=== PATIENT | female | born 2000 | race Caucasian/White ===

== ENCOUNTER 2024-06-23 19:51 | Emergency (ER) | payer OTHER, BC, SELFPAY ==
[2024-06-23 19:52] VITALS: BP 135/76; PULSE 98; RESP 16; TEMP 36.8; O2SAT 100; BMI 29.0
--- NOTE | 2024-06-23 21:25 | RAD_ITS ---
PROCEDURE: FINGER(S) MIN 2 VIEWS REASON FOR EXAM: Pain. TECHNIQUE: 3 view(s) of the left 5th digit COMPARISON: None FINDINGS: Tiny fracture of the base of the 5th proximal phalanx. Normal alignment. Soft tissues are unremarkable. RAD/Finger(s) Min 2 Views IMPRESSION: 5th proximal phalanx fracture. Reading Location: [place] [id number]
--- NOTE | 2024-06-23 21:25 | RAD_ITS ---
PROCEDURE: FINGER(S) MIN 2 VIEWS REASON FOR EXAM: Pain and swelling. TECHNIQUE: 3 view(s) of the right 1st digit. COMPARISON: None FINDINGS: No visible fracture. Normal alignment. Soft tissues are unremarkable. RAD/Finger(s) Min 2 Views IMPRESSION: NEGATIVE FINGER SERIES Reading Location: [place] [id number]
--- NOTE | 2024-06-23 21:25 | CT_ITS ---
PROCEDURE: SPINE CERVICAL WITHOUT CONTRAS REASON FOR EXAM: Pain. TECHNIQUE: Cervical spine CT without contrast. COMPARISON: None. FINDINGS: Alignment: Normal Vertebrae: No acute fracture Soft Tissues: Unremarkable C1-2: Normal alignment. Dens appears intact. C2-3: Unremarkable C3-4: Unremarkable C4-5: Unremarkable C5-6: Unremarkable C6-7: Unremarkable C7-T1: Unremarkable CT/Spine Cervical without Contras IMPRESSION: No acute osseous abnormalities. One or more dose reduction techniques were used (e.g., Automated exposure contr ol, adjustment of the mA and/or kV according to patient size, use of iterative reconstruction technique). Reading Location: [place] [id number]
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
[2024-06-23 21:52] VITALS: BP 132/81; PULSE 74; RESP 16; O2SAT 98
[2024-06-23] MEDS: oxyCODONE 5 MG Tablet PO (23:05)
[2024-06-23 23:12] VITALS: BP 117/74; PULSE 89; RESP 16; TEMP 36.6; O2SAT 99
== END 2024-06-23 23:14 | disposition home or self-care (01) ==
PROVIDERS: Emergency Provider Emergency Medicine; PCP Nurse Practitioner Family; Visit Provider Emergency Medicine
DX: S16.1XXA Strain of muscle, fascia and tendon at neck level, initial encounter (principal); S62.617A Displaced fracture of proximal phalanx of left little finger, initial encounter for closed fracture; V89.2XXA Person injured in unspecified motor-vehicle accident, traffic, initial encounter
CPT/HCPCS: 72125; 73140; 99284

== ENCOUNTER 2024-11-30 09:00 | Outpatient (RCR) | payer OTHER, SELFPAY ==
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
== END 2024-11-30 19:00 | disposition home or self-care (01) ==
LOC: PT 09:00
PROVIDERS: PCP Nurse Practitioner Family; Referring Provider Nurse Practitioner Family; Visit Provider Nurse Practitioner Family
DX: S16.1XXD Strain of muscle, fascia and tendon at neck level, subsequent encounter (principal)
CPT/HCPCS: 97035; 97140; 97162; 97530